=== PATIENT | female | born 1995 | race Caucasian/White ===

== ENCOUNTER 2021-02-10 08:00 | Inpatient (IN) ==
[2021-02-10] MEDS ORDERED: Metoclopramide 10 MG/2 ML VIAL IVP ONE (08:34)
[2021-02-10] MEDS ORDERED: Famotidine 20 MG/2 ML VIAL IVP ONE (08:34)
[2021-02-10] MEDS ORDERED: CeFAZolin 2,000MG/50ML DUPLEX 2,000 MG/50 ML BAG IVPB ONE (08:34)
[2021-02-10] MEDS ORDERED: Ringers Solution, Lactated 1,000 ML IVC SCH (08:45)
[2021-02-10] MEDS ORDERED: Lidocaine -MPF 2% 5 ML VIAL ONE (08:57)
[2021-02-10] MEDS ORDERED: *HR* FentaNYL (PF) 100 MCG/2 ML VIAL ONE (09:16)
[2021-02-10] MEDS ORDERED: Oxytocin 20 units/ LR 1000 mL 20 UNIT/1,000 ML BAG IVC ONE (09:16)
[2021-02-10] MEDS ORDERED: *HR* Morphine Sulfate/PF 10 MG/10 ML AMPUL ONE (09:16)
[2021-02-10] MEDS ORDERED: Ondansetron 4 MG/2 ML VIAL ONE (09:18)
[2021-02-10] MEDS ORDERED: Acetaminophen IV 1,000 MG/100 ML BAG IVPB ONE (09:18)
[2021-02-10] MEDS ORDERED: Ketorolac 30 MG/ML VIAL ONE (09:18)
[2021-02-10] MEDS ORDERED: EPHEDrine 50 MG/ML VIAL ONE (09:19)
[2021-02-10] MEDS ORDERED: *HR* Phenylephrine 10 MG/ML VIAL ONE (09:23)
[2021-02-10] MEDS ORDERED: Ondansetron 4 MG/2 ML VIAL IVP PRN ×2 (09:34→13:57)
[2021-02-10 09:54] LABS: Amphetamine Screen,Urine Negative ng/mL (Cutoff=1000); Barbiturate Screen,Urine Negative ng/mL (Cutoff=200); Benzodiazepines Screen,Urine Negative ng/mL (Cutoff=200); Cannabinoid Screen,Urine Negative ng/mL (Cutoff = 50); Cocaine Screen,Urine Negative ng/mL (Cutoff= 300); Opiate Screen,Urine Negative ng/mL (Cutoff=300); Phencyclidine Screen,Urine Negative ng/mL (Cutoff=25)
[2021-02-10 10:04] LABS: Basophils # 0.1 K/mcL (0.0-0.2); Basophils % 0.6 %; Eosinophils # 0.1 K/mcL (0.0-0.6); Eosinophils % 0.9 %; Hematocrit 31.9 % (35.3-44.9); Immature Granulocytes % 1.9 % (0-4); Lymphocytes # 2.3 K/mcL (0.6-4.6); Lymphocytes % 19.3 %; Mean Corpuscular HGB Conc 33.2 g/dL (31.6-35.5); Mean Corpuscular Hemoglobin 31.7 pg (28.0-33.3); Mean Corpuscular Volume 95.5 fL (83.0-100.0); Mean Platelet Volume 9.9 fL (9.4-12.4); Monocytes # 1.2 K/mcL (0.0-1.3); Monocytes % 9.7 %; Neutrophils # 8.1 K/mcL (1.6-8.9); Platelet Count 159 K/mcL (140-400); Red Blood Count 3.34 M/mcL (3.82-4.97); Red Cell Distribution Width 12.9 % (11.5-14.5); Segmented Neutrophils % 67.6 %
[2021-02-10 10:06] LABS: Hemoglobin 10.6 g/dL (11.5-15.4)
[2021-02-10] MEDS ORDERED: Ringers Solution, Lactated 1,000 ML ONE (10:56)
[2021-02-10] MEDS ORDERED: *HR* OxyCODONE Immed Rel 5 MG TABLET PO PRN (13:57)
[2021-02-10] MEDS ORDERED: Metoclopramide 10 MG/2 ML VIAL IVP PRN (13:57)
[2021-02-10] MEDS ORDERED: Simethicone 80 MG TAB.CHEW PO PRN (13:57)
[2021-02-10] MEDS: Ibuprofen 600 MG TABLET PO SCH (16:58)
[2021-02-10] MEDS: Acetaminophen 325 MG TABLET PO SCH (16:58)
[2021-02-10] MEDS: CeFAZolin 2,000 MG/120 ML BAG IVPB SCH (17:13)
[2021-02-10] MEDS: Oxytocin 20 units/ LR 1000 mL 20 UNIT/1,000 ML BAG IVC SCH (17:13)
[2021-02-10 19:44] VITALS: O2SAT 98
[2021-02-11] MEDS: Acetaminophen 325 MG TABLET PO SCH ×4 (00:47→18:12)
[2021-02-11] MEDS: Ibuprofen 600 MG TABLET PO SCH ×4 (00:48→18:12)
[2021-02-11] MEDS: Oxytocin 20 units/ LR 1000 mL 20 UNIT/1,000 ML BAG IVC SCH (01:50)
[2021-02-11] MEDS: CeFAZolin 2,000 MG/120 ML BAG IVPB SCH ×2 (01:52→08:01)
[2021-02-11 05:38] LABS: Basophils % 0.2 %; Eosinophils # 0.1 K/mcL (0.0-0.6); Eosinophils % 0.4 %; Hematocrit 23.6 % (35.3-44.9); Immature Granulocytes % 0.9 % (0-4); Lymphocytes # 2.3 K/mcL (0.6-4.6); Lymphocytes % 13.3 %; Mean Corpuscular HGB Conc 34.3 g/dL (31.6-35.5); Mean Corpuscular Hemoglobin 32.5 pg (28.0-33.3); Mean Corpuscular Volume 94.8 fL (83.0-100.0); Mean Platelet Volume 10.6 fL (9.4-12.4); Monocytes # 1.6 K/mcL (0.0-1.3); Monocytes % 9.3 %; Platelet Count 151 K/mcL (140-400); Red Blood Count 2.49 M/mcL (3.82-4.97); Red Cell Distribution Width 12.8 % (11.5-14.5); Segmented Neutrophils % 75.9 %; White Blood Count 17.1 K/mcL (4.3-11.1)
[2021-02-11 05:40] LABS: Hemoglobin 8.1 g/dL (11.5-15.4)
[2021-02-11] MEDS: Prenatal Vit/FA 1 EACH TABLET PO SCH (08:01)
[2021-02-11 08:06] VITALS: TEMP 97.9
[2021-02-11] MEDS ORDERED: NON-FORMULARY MEDICATION 1 EACH EACH (Ferrous Sulfate [Iron] 325 MG Tablet) PO SCH (09:00)
[2021-02-11 22:42] VITALS: BP 119/68; PULSE 92
[2021-02-12] MEDS: Acetaminophen 325 MG TABLET PO SCH ×3 (02:59→14:28)
[2021-02-12] MEDS: Prenatal Vit/FA 1 EACH TABLET PO SCH (08:56)
== END 2021-02-12 16:29 | disposition home or self-care (01) | DRG 540 ==
LOC: 1NENULAB 08:15 → 1NENUOBS 13:46
PROVIDERS: ADMIT Obstetrics & Gynecology; ATTEND Obstetrics & Gynecology